=== PATIENT | female | born 1985 | race Caucasian/White ===

== ENCOUNTER 2016-11-12 10:51 | Emergency (ER) | payer SELFPAY ==
--- NOTE | ~2016-11-12 | ER ---
PATIENT'S NAME: JENN CAMERON [facility] AGE: 31 Y [address] ROOM: [place] [address] LOCATION: ED ADMIT DATE: 11/12/2016 ER/Outpatient Report DISCHARGE DATE: 11/12/2016 FAMILY PHYSICIAN: PHYSICIAN, NO ATTENDING PHYSICIAN: Eduardo Saba CHIEF COMPLAINT: Jaw pain. HISTORY OF PRESENT ILLNESS: The patient presents with left-sided jaw pain. It has been going on for the last few days. She has tried taking fxxr-ntr-dadqyha medication, but that has not been helping. She has had this pain in the past and it got better with some antibiotics and pain medicine. She denies any fevers or inability to tolerate oral intake but it is painful to chew. She denies any other acute issues at this time. She has no swelling in the floor of the mouth. PAST MEDICAL HISTORY: Documented on the record and reviewed by me. SOCIAL HISTORY: Documented on the record and reviewed by me. MEDICATIONS: Documented on the record and reviewed by me. ALLERGIES: DOCUMENTED ON THE RECORD AND REVIEWED BY ME. REVIEW OF SYSTEMS: All systems reviewed and negative except as noted in the HPI. PHYSICAL EXAMINATION: VITAL SIGNS: Blood pressure 151/99, pulse 90, respiratory rate is 18, temperature 98.2, SpO2 is 100% on room air. Pain appears to be 6/10. GENERAL: Age-appropriate female, in obvious discomfort, sitting upright in exam chair, in no respiratory distress. NEUROLOGIC: Awake and alert. GCS 15. No obvious abnormalities. HEENT: Normocephalic, atraumatic. Eyes are PERRL. The oropharynx is notable for slight dryness with marked dental caries at the left inferior molar. There is no redness, swelling, or edema of the gums or tenderness to palpation of floor of the mouth. The buccal mucosa reflection of the external angle of the mandible. No appreciated adenopathy. No evidence of Jarrett's angina. NECK: Supple. Trachea is midline. CHEST: Heart is regular. PATIENT'S NAME: JENN CAMERON [facility] AGE: 31 Y [address] ROOM: [place] [address] LOCATION: [facility] ADMIT DATE: 11/12/2016 ER/Outpatient Report DISCHARGE DATE: 11/12/2016 FAMILY PHYSICIAN: PHYSICIAN, NO ATTENDING PHYSICIAN: Eduardo Saba LUNGS: Even and unlabored respirations. SKIN: Warm, dry, and intact. LABS AND X-RAYS: None. IMPRESSION: Dental caries with dental pain. EMERGENCY DEPARTMENT COURSE: The patient was evaluated as above. Presentation consistent with dental caries. We will start her on penicillin and tramadol for pain control. Over- the-counter medications as needed for pain management. The patient was offered a dental block and declined. I recommended that she follow up with a dentist for further evaluation and return if inability to tolerate oral intake or difficulty breathing. All questions answered. The patient discharged in good condition. MD RICHARD QUINONEZ/heather /[id number] d: 11/12/16 1811 t: 11/14/16 0823, OUTPATIENT REPORT
[2017-04-16] MEDS ORDERED: PERCOCET 5-3251 EACH PO (12:57)
== END 2016-11-12 11:35 | disposition disaster alternative care site (69) ==
LOC: GMED 10:51
DX: K02.9 Dental caries, unspecified (principal)

== ENCOUNTER 2016-12-14 00:33 | Emergency (ER) | payer OTHER ==
--- NOTE | ~2016-12-14 | ER ---
PATIENT'S NAME: JENN CAMERON [facility] AGE: 31 Y [address] ROOM: [place] [address] LOCATION: [facility] ADMIT DATE: 12/14/2016 ER/Outpatient Report DISCHARGE DATE: 12/14/2016 FAMILY PHYSICIAN: PHYSICIAN, RM ATTENDING PHYSICIAN: Senia Fields HISTORY OF PRESENT ILLNESS: A 31-year-old female who presents today with chief complaint of left hand pain. It is mostly in the dorsal hand, right over the second and third metacarpals. The patient reports that she was at work and she swung her hand out and hit it on a sink at work. This happened few hours ago. She reports the pain is 8/10. She has taken ibuprofen and Tylenol without relief of pain. The patient is right-hand dominant, but denies any numbness or tingling, just pain over it. She does not want to use ice because she "does not like the way ice makes her hand feel." No other complaints at this time. Asking for pain medications. PAST MEDICAL HISTORY: Multiple dental problems and ER visits for dental pain. PAST SURGICAL HISTORY: None. SOCIAL HISTORY: She is a smoker. Does not use drugs. Drinks alcohol socially. MEDICATIONS: None. ALLERGIES: NONE. ROS: Reviewed by me negative with the exception of those discussed in the HPI. PHYSICAL EXAMINATION: VITAL SIGNS: The patient is 5 feet 8 inches, she weighs 84.8 kilos, heart rate is 94, respiratory rate 16, temperature is 98.8, blood pressure is 162/91, saturations are 97% on room air. GENERAL: She does not appear uncomfortable. She is speaking to me in full sentences. She smells like cigarette smoke. She does not look toxic at all. She does not look like she is in a lot of pain. Hand: She has some bruising and swelling right over the second and third metacarpals. She has no snuffbox tenderness. She has no wrist tenderness. She has full range of motion of the wrist. No tenderness on the lateral or medial malleolus. No pain when axial PATIENT'S NAME: JENN CAMERON [facility] AGE: 31 Y [address] ROOM: [place] [address] LOCATION: [facility] ADMIT DATE: 12/14/2016 ER/Outpatient Report DISCHARGE DATE: 12/14/2016 FAMILY PHYSICIAN: PHYSICIAN, NO ATTENDING PHYSICIAN: Senia Fields loading of the thumb. Some pain on axial loading of the second digit and third digit, but no pain of the bony part of the second and third digit. She is tender right over the second and third metacarpals really. She is able to make a fist though and she is otherwise intact sensation rodriguez. EMERGENCY ROOM COURSE: An x-ray was done. On my read, I do not see any fractures. She has no snuffbox tenderness. I looked at the scaphoid as well. I do not see any fractures. She has no snuffbox tenderness. I would not suspect a scaphoid fracture at this time. I gave her Hines. We will give her script for some pain medications and have her follow up with her primary care doctor. IMPRESSION: Left dorsal hand injury. MD HERON CUTLER/heather /[id number] d: 12/14/16527 t: 12/14/16 1816, OUTPATIENT REPORT
[2017-04-16] MEDS ORDERED: PERCOCET 5-3251 EACH PO (12:57)
== END 2016-12-14 01:14 | disposition disaster alternative care site (69) ==
LOC: GACC 00:33
DX: S69.92XA Unspecified injury of left wrist, hand and finger(s), initial encounter (principal); W22.8XXA Striking against or struck by other objects, initial encounter; Y92.69 Other specified industrial and construction area as the place of occurrence of the external cause; Y99.0 Civilian activity done for income or pay

== ENCOUNTER 2017-01-16 07:02 | Emergency (ER) | payer SELFPAY ==
--- NOTE | ~2017-01-16 | ER ---
PATIENT'S NAME: JENN CAMERON [facility] AGE: 31 Y [address] ROOM: [place] [address] LOCATION: [facility] ADMIT DATE: 01/16/2017 ER/Outpatient Report DISCHARGE DATE: 01/16/2017 FAMILY PHYSICIAN: PHYSICIAN, NO ATTENDING PHYSICIAN: Naldo Holt Admission date and time documented in medical record. I saw the patient 0715 hours. CHIEF COMPLAINT: Left lower quadrant abdominal pain. HISTORY OF PRESENT ILLNESS: The patient is a 31-year-old female who presents with onset of the left lower quadrant abdominal pain about 0200 hours this morning. No nausea, vomiting, or diarrhea. No urinary frequency, urgency, or dysuria. No back pain. No chest pain or shortness of breath. No lightheadedness, dizziness, syncope, or near syncope. No headache, eyes, ears, nose, throat, neck, or spine pain. No recent coughs, colds, flus, fever, chills, or sweats. No fall or trauma. HOME MEDICATIONS: None. ALLERGIES: NONE. SOCIAL HISTORY: The patient smokes a pack of cigarettes a day. Occasional intake of alcohol. SIGNIFICANT PAST MEDICAL HISTORY: Tobacco abuse, fatty liver, dental problems, cholelithiasis. OPERATIONS: None. REVIEW OF SYSTEMS: All systems reviewed by me are negative with the exception of those discussed in the history of present illness. PHYSICAL EXAMINATION: VITAL SIGNS: Temperature 98.3 tympanic pulse 88, respirations 16, blood pressure 131/68, O2 saturation on room air is 99%. HEAD: Normocephalic. EYES, EARS, NOSE, THROAT: Clear. Mucous membranes moist. NECK: No nuchal rigidity. No thyromegaly or cervical adenopathy. PATIENT'S NAME: JENN CAMERON [facility] AGE: 31 Y [address] ROOM: [place] [address] LOCATION: [facility] ADMIT DATE: 01/16/2017 ER/Outpatient Report DISCHARGE DATE: 01/16/2017 FAMILY PHYSICIAN: PHYSICIAN, NO ATTENDING PHYSICIAN: aNldo Holt LUNGS: Clear. Good air flow. No rales, rhonchi, or wheezes. HEART: Regular. Pulses are palpable. ABDOMEN: Soft, flat, nondistended. Minimal if any tenderness in the left lower quadrant. Good bowel tones. No organomegaly or abnormal masses palpable. No guarding rigidity or rebound tenderness. No CVA tenderness. EXTREMITIES: Without peripheral edema, cyanosis, or deformity. NEUROVASCULAR: Intact. SKIN: Clear. LABORATORY DATA: White count was 14,900, differential of 70 segs, 20 lymphocytes, 7 monos, 1 eo, 1 baso. Hemoglobin is 13.7, hematocrit 41.2 platelet count was 197,000. Quantitative HCG was negative, less than 1.0. Abdominal x-rays show no perforation, obstruction, or acute lung infiltrate. She does have increased stool pattern. We will review x-ray with the radiologist. Did give the patient Bentyl 20 mg IM in the emergency room. Morphine 4 mg IM in the emergency room. IMPRESSION: Left lower quadrant abdominal pain, etiology uncertain, most likely intestinal spasm. It looks like she has a little bit of constipation also. PLAN: The patient dismissed home. Observation. Activity as tolerated. Clear liquid diet for 24 hours and advance diet as tolerated. Bentyl 20 mg 4 times a day, #20, one bottle of mag citrate orally today at home. Follow up with personal physician in 2 to 3 days. Discussed my findings and recommendations with the patient, she understands. MD MOSHE MALCOLM/modl /[id number] d: 01/16/17 1313 t: 01/16/17 1738, OUTPATIENT REPORT
[2017-01-16 07:43] LABS: BASOPHIL # 0.1 K/uL (0.0-0.2); BASOPHIL % 0.9 %; EOSINOPHIL # 0.1 K/uL (0.0-0.5); EOSINOPHIL % 0.6 %; HEMATOCRIT 41.2 % (33.0-46.0); HEMOGLOBIN 13.7 g/dL (11.0-15.0); IMMATURE GRANULOCYTE # 0.1 K/uL (0.0-0.3); IMMATURE GRANULOCYTE % 0.8 %; LYMPHOCYTE % 20.1 %; MCH 29.8 pg (27.0-34.0); MCHC 33.3 gm/dL (32.0-36.5); MCV 89.8 fl (83.0-98.0); MONOCYTE # 1.1 K/uL (0.0-1.0); MONOCYTE % 7.4 %; MPV 11.1 fl (9.4-12.4); NEUTROPHIL # (ANC) 10.4 K/uL (1.8-7.8); NEUTROPHIL % 70.2 %; NRBC % 0 /100WBC (0-0.00); PLATELET COUNT 197 K/uL (150-450); RBC 4.59 M/uL (3.50-5.50); RDW-CV 13.2 % (11.9-14.6); WBC 14.9 K/uL (4.0-11.0)
[2017-04-16] MEDS ORDERED: PERCOCET 5-3251 EACH PO (12:57)
== END 2017-01-16 09:23 | disposition disaster alternative care site (69) ==
LOC: GMED 07:02
PROVIDERS: Emergency Medicine
DX: R10.32 Left lower quadrant pain (principal); F17.210 Nicotine dependence, cigarettes, uncomplicated
CPT/HCPCS: J0500; J2270

== ENCOUNTER 2017-01-28 00:02 | Emergency (ER) | payer SELFPAY ==
--- NOTE | ~2017-01-28 | ER ---
PATIENT'S NAME: JENN CAMERON [facility] AGE: 31 Y [address] ROOM: [place] [address] LOCATION: [facility] ADMIT DATE: 01/28/2017 ER/Outpatient Report DISCHARGE DATE: FAMILY PHYSICIAN: PHYSICIAN, NO ATTENDING PHYSICIAN: Parth Castrejon Time of Arrival: 0010 hours. Time of Evaluation: 0010 hours. CHIEF COMPLAINT: Tooth pain. HISTORY OF PRESENT ILLNESS: The patient is a 31-year-old female, who presents to the emergency department today with a chief complaint of tooth pain. It is in her right upper region. It is 9/10 in severity. It started about 2 days prior to arrival. Denies any fevers or chills. No nausea or vomiting. No diarrhea or constipation. No chest pain. No shortness of breath. PAST MEDICAL HISTORY: Tobacco abuse, fatty liver, dental problems, cholelithiasis. PAST SURGICAL HISTORY: None. SOCIAL HISTORY: The patient smokes a pack per day. Reports occasional alcohol use. Denies any illicit drug use. ALLERGIES: NO KNOWN DRUG ALLERGIES. MEDICATIONS: None. PRIMARY CARE DOCTOR: None. REVIEW OF SYSTEMS: All systems are reviewed by myself and are negative with the exception of those discussed in the HPI and past medical history. PHYSICAL EXAMINATION: VITAL SIGNS: Weight 83.5 kg, blood pressure 133/76, pulse 80, respiratory rate 18, temperature 97.5, oxygen saturation 98% on room air. PATIENT'S NAME: JENN CAMERON [facility] AGE: 31 Y [address] ROOM: [place] [address] LOCATION: [facility] ADMIT DATE: 01/28/2017 ER/Outpatient Report DISCHARGE DATE: FAMILY PHYSICIAN: PHYSICIAN, NO ATTENDING PHYSICIAN: Parth Castrejon GENERAL: The patient is a 31-year-old female, who appears stated age, in mild acute distress. HEENT: Normocephalic, atraumatic. Oropharynx: The patient has multiple dental caries. Her right upper molar is decayed with no obvious abscess noted. There is no Jarrett's angina. Oropharynx is otherwise clear. NECK: Supple. There is no nuchal rigidity. No tenderness to palpation. CARDIOVASCULAR: Regular rate and rhythm. No murmurs, rubs, or gallops. LUNGS: Clear to auscultation bilaterally. No wheezes, rales, or rhonchi. MUSCULOSKELETAL: The patient has good muscle tone. Moves all 4 extremities. SKIN: Warm and dry. LABORATORY DATA AND X-RAYS: None. IMPRESSION: 1. Dentalgia. 2. Multiple dental caries, in various stages of decay. 3. Initial visit. EMERGENCY DEPARTMENT COURSE: The patient was brought back to the examination room. Seen and evaluated by myself. The patient was given 60 mg of Toradol IM. This resulted in the improvement of the patient's pain. I have discussed that I will place the patient on penicillin. I have written a prescription for this. I have also written a prescription for Naprosyn for home. I have asked she follows up with a dentist in 2 days for re-evaluation. I have discussed return to care instructions including worsening symptoms or any other concerns to return to the emergency department as soon as possible. The patient is agreeable without further questions at this time. DISPOSITION: The patient discharged home in good condition. DO ZORAIDA FLANAGAN/modl /[id number] d: 01/28/1757 t: 01/28/171919, OUTPATIENT REPORT
[2017-04-16] MEDS ORDERED: PERCOCET 5-3251 EACH PO (12:57)
== END 2017-01-28 00:32 | disposition disaster alternative care site (69) ==
LOC: GMED 00:02
DX: K02.9 Dental caries, unspecified (principal); F17.210 Nicotine dependence, cigarettes, uncomplicated
CPT/HCPCS: J1885

== ENCOUNTER → 2017-04-16 | Day surgery (SDC) | payer SELFPAY ==
[~2017-04-16] VITALS: Ht 172.7 cm; Wt 91.1 kg
[~2017-04-16] MED LIST: PERCOCET 5-3251 EACH PO
--- NOTE | ~2017-04-16 | ER ---
PATIENT'S NAME: JENN CAMERON [facility] AGE: 31 Y [address] ROOM: [place] [address] [place] [facility] ADMIT DATE: 04/16/2017 ER/Outpatient Report DISCHARGE DATE: FAMILY PHYSICIAN: PHYSICIAN, NO ATTENDING PHYSICIAN: Heriberto Connelly CHIEF COMPLAINT: Severe lower abdominal pain. HISTORY OF PRESENT ILLNESS: Ms. Cameron states that last Saturday, she was told she miscarried at [facility]. She was seen at [facility] on Saturday by Dr. Reynolds, was told to "wait it out," and is scheduled to be seen this Saturday for same. However, she had significant pain that started yesterday, and throughout the night, it became worse and worse. It is located low in the pelvis. It is associated with constant vaginal bleeding since the onset last Saturday. She denies any others symptoms at this time. PAST MEDICAL HISTORY: Documented on the record and reviewed by me. SOCIAL HISTORY: Documented on the record and reviewed by me. MEDICATIONS: Documented on the record and reviewed by me. ALLERGIES: DOCUMENTED ON THE RECORD AND REVIEWED BY ME. REVIEW OF SYSTEMS: All systems were reviewed and negative except as noted in the HPI. PHYSICAL EXAMINATION: VITAL SIGNS: Blood pressure 135/98, pulse 94, respiratory rate is 20, temperature 97.5, and SpO2 is 96% on room air. Pain is rated 8/10. GENERAL: An age-appropriate female, recumbent on the exam table, in obvious pain, in no apparent distress. HEENT: Normocephalic, atraumatic. Eyes are PERRL. Oropharynx is clear. NECK: Supple. Trachea is midline. NEUROLOGIC: Awake and alert. GCS 15. No focal deficits. No asymmetry. CHEST: Even and nonlabored respirations. LUNGS: Clear to auscultation bilaterally. HEART: Regular rate and rhythm. No murmurs. ABDOMEN: Soft, nontender, and nondistended. No rebound, guarding, or masses PATIENT'S NAME: JENN CAMERON [facility] AGE: 31 Y [address] ROOM: [place] [address] LOCATION: [facility] [place] ADMIT DATE: 04/16/2017 ER/Outpatient Report DISCHARGE DATE: FAMILY PHYSICIAN: PHYSICIAN, NO ATTENDING PHYSICIAN: Heriberto Connelly except for the suprapubic region which is diffusely tender. BACK: Normal to inspection and palpation. No CVA or paraspinal tenderness. GENITOURINARY: Normal external female genitalia. Internal exam reveals blood in the vaginal vault. The os appears to be closed. There is some scant clot there and active bleeding. EXTREMITIES: Warm and well perfused. No obvious abnormalities or deformities. SKIN: Clean, dry, and intact. LABORATORY AND X-RAY DATA: Ultrasound reveals no clear pole, but definite abnormality within the uterus. Blood type is O positive, antibody negative. CMS with no significant electrolyte abnormalities other than a potassium at 3.5. Renal function and LFTs unremarkable. HCG is 7535, most recently 3080 on 04/10 and 1500 a week ago on initial evaluation. White count is 13.1 with 9.7 neutrophils, hemoglobin is 13.5, and platelets of 231. INR is less than 1. IMPRESSION: Likely ectopic versus abnormal . EMERGENCY DEPARTMENT COURSE: The patient was seen and evaluated as above. Based on the fact that her hCG is not changing appropriately for the presentation and the abnormal ultrasound, there was concern for a very abnormal versus life- threatening with severe abdominal pain and vaginal bleeding. I discussed the case with Dr. Connelly, SHEATHER. He evaluated the patient and will take her to the operating room for evaluation for ectopic and possible D and C pending completion of his evaluation. The patient was given fentanyl for symptom relief, which was very helpful for her. She was also given some Zofran for nausea. She will be taken to the preoperative area from the ER and will be taken to the operating room initially. She will be admitted or discharged pending completion of Dr. Connelly's evaluation. MD RICHARD QUINONEZ/heather /[id number] d: 04/17/17 1441 t: 04/30/17 0950, OUTPATIENT REPORT
--- NOTE | ~2017-04-16 | HP ---
PATIENT'S NAME: GUERDA CAMERON [facility] AGE: 31 Y [address] ROOM: [place] [address] LOCATION: [facility] [place] ADMIT DATE: 04/16/2017 History & Physical DISCHARGE DATE: FAMILY PHYSICIAN: PHYSICIAN, NO ATTENDING PHYSICIAN: Heriberto Connelly DATE OF SERVICE: CHIEF COMPLAINT: Pelvic pain and vaginal bleeding while . HISTORY OF PRESENT ILLNESS: Guerda Cameron is a 31-year-old single white female, primigravida, who presents to the emergency room with complaints of persistent vaginal bleeding. The patient states her LMP is 02/13/2017, which makes her 8 weeks and 6 days gestational age. She has a known , blood type is O positive. She would present to [facility] with complaints of possible miscarriage. Ultrasound at that time showed no viable intrauterine . She would follow up at [facility]. She saw Dr. Essence Reynolds on 04/10/2017. At that time, it was felt that she had an early intrauterine , but could not identify a pole and there was a small gestational sac. No free fluid in the pelvis. Later that evening, her hCG would return 3080. She would now present to the emergency room at [facility] with complaints of persistent vaginal bleeding for the past 1-2 weeks. Again, she is 8 weeks 6 days gestational age. Ultrasound today showed no viable intrauterine , no clear gestational sac, no pole, no identified extrauterine , no free fluid in the pelvis; however, her serum hCG has risen to approximately 7500. She is complaining of some left lower quadrant pain. With the rising serum hCG and no identifiable intrauterine , it is suspicious for an ectopic . As there has been no interval change during the 3 ultrasounds to suggest ongoing viable intrauterine , we are recommending she undergo a laparoscopy to rule out an ectopic and a uterine dilation and curettage should that be negative. The patient understood the indications, procedures, risks, and alternatives. PAST MEDICAL HISTORY: The patient is primigravida with LMP 02/13/2017. She has never used contraception throughout her entire life and this is the first . She states that she smokes half pack per day and she states she has a history of an anxiety disorder, but her medications were discontinued when she discovered she was . Does not remember what the medication was. No previous operations. CURRENT MEDICATIONS: PATIENT'S NAME: GUERDA CAMERON [facility] AGE: 31 Y [address] ROOM: [place] [address] LOCATION: [facility] [place] ADMIT DATE: 04/16/2017 History & Physical DISCHARGE DATE: FAMILY PHYSICIAN: PHYSICIAN, NO ATTENDING PHYSICIAN: Heriberto Connelly No current medications. ALLERGIES: NO ALLERGIES. FAMILY HISTORY: Significant for diabetes and hypertension. REVIEW OF SYSTEMS: Significant for the persistent vaginal bleeding, pain in the left lower quadrant, otherwise negative. PHYSICAL EXAMINATION: GENERAL: A well-developed, well-nourished white female, appears stated age. HEENT: Grossly normal. LUNGS: Clear to auscultation. HEART: Regular rate and rhythm without murmur. ABDOMEN: Soft, minimally tender in the left lower quadrant, but no guarding or rebound in any quadrants. Bowel sounds were present. PELVIC: Deferred. EXTREMITIES: Grossly normal. NEUROLOGIC: Noted deep tendon reflexes to be 2+ and equal. Pupils are equal, round, reactive to light and accommodation. Extraocular motions are intact. IMPRESSION: A 31-year-old female with a nonviable , suspected ectopic . Recommend she undergo a diagnostic laparoscopy to rule out ectopic . Possible D and C should that be negative. PLAN: Proceed to diagnostic laparoscopy, possible D and C. The patient understands the indications, procedures, risks, and alternatives. Also understands the risks to include bleeding that may require transfusions, infections, may require IV antibiotics, prolonged hospitalization, possible damage to internal organs, may require additional surgical correction, and the risks of anesthesia. All questions were answered to the patient's satisfaction and informed consent was obtained. MD CANDELARIA DAY/heather PATIENT'S NAME: GUERDA CAMERON [facility] AGE: 31 Y [address] ROOM: [place] [address] LOCATION: [facility] [place] ADMIT DATE: 04/16/2017 History & Physical DISCHARGE DATE: FAMILY PHYSICIAN: PHYSICIAN, NO ATTENDING PHYSICIAN: Heriberto Connelly /[id number] D: [id number] T: [id number] HISTORY & PHYSICAL
--- NOTE | ~2017-04-16 | OR ---
PATIENT'S NAME: GUERDA OGDEN [facility] AGE: 31 Y [address] 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 DATE OF PROCEDURE: 04/16/2017 PREOPERATIVE DIAGNOSIS: Suspected ectopic . POSTOPERATIVE DIAGNOSIS: Right ampullary tubal ectopic . ANESTHESIA: General endotracheal anesthesia. ESTIMATED BLOOD LOSS: 5 mL. CLINICAL INDICATION: Guerda Ogden is a 31-year-old single, white female, primigravida, her LMP 02/13/2017 placed in her 8 weeks and 6 days gestational age. She presented to the emergency room with bleeding. This is her 3rd evaluation for bleeding during this . All three ultrasound failed to show a pole. Although, one ultrasound suspected a gestational sac. She has minimal free fluid in the pelvis. Pain on the left side of her pelvis. HCG values have been rising, last week they were 3000 and currently 7500. Her blood type is O positive. We are suspecting a tubal ectopic . She understood the indications, procedures, risks, and alternatives. FINDINGS: Right-sided ampullary tubal ectopic , some free blood in the pelvis suggesting either tubal miscarriage or an early rupturing ectopic . Both ovaries appeared normal as did the left fallopian tube. The uterus appeared normal as well. TECHNIQUE OF PROCEDURE: The patient taken operating room, given general endotracheal anesthesia with good results, placed in the lithotomy position, prepped and draped in usual fashion. A Hulka endocervical tenaculum was placed about the cervix. A lidocaine was placed about the incision sites. A transverse infraumbilical skin incision was made with a scalpel. Veress insufflating needle was inserted through the incision. Approximately 2 L of carbon dioxide were inserted abdomen. Veress needle was then replaced with blunt trocar and sleeve. Trocar was replaced with the laparoscopic, a 2nd suprapubic puncture site was made. The above-mentioned findings were identified. A 2nd suprapubic port was created by using a scalpel, placing blunt trocar and sleeve. Trocar was removed. A 3rd right lower quadrant port was placed using a scalpel with good skin. Blunt trocar and sleeve inserted into the incision. Trocars were PATIENT'S NAME: GUERDA OGDEN [facility] AGE: 31 Y [address] ROOM: [place], [place] [address] LOCATION: [facility] ADMIT DATE: 04/16/2017 OR/Procedure Report DISCHARGE DATE: FAMILY PHYSICIAN: PHYSICIAN, NO ATTENDING PHYSICIAN: Heriberto Connelly replaced with the LigaSure. LigaSure was used to remove the ectopic . The mesosalpinx was secured and using the LigaSure. Once the specimen was freed, the specimen was brought through an EndoCatch bag and was retrieved from the abdomen. Good hemostasis was obtained. The carbon dioxide was allowed to escape the abdomen. The laparoscopic and vaginal instruments were retrieved. Stab wounds were closed with deep single interrupted stitches followed by [id number] interrupted stitches of 4-0 Vicryl suture. Sponge, needle, and instrument counts were correct. The patient tolerated procedure well, was taken to the recovery room in good condition. MD CANDELARIA DAY/heather /[id number] d: 04/16/17 1520 t: 04/29/17 1031, OPERATIVE SUMMARY
[2017-04-16 07:01] LABS: BASOPHIL # 0.1 K/uL (0.0-0.2); BASOPHIL % 0.5 %; EOSINOPHIL # 0.1 K/uL (0.0-0.5); EOSINOPHIL % 1.1 %; HEMATOCRIT 39.8 % (33.0-46.0); HEMOGLOBIN 13.5 g/dL (11.0-15.0); IMMATURE GRANULOCYTE # 0.1 K/uL (0.0-0.3); IMMATURE GRANULOCYTE % 0.5 %; LYMPHOCYTE # 2.4 K/uL (0.8-4.0); LYMPHOCYTE % 17.9 %; MCH 31.3 pg (27.0-34.0); MCHC 33.9 gm/dL (32.0-36.5); MCV 92.1 fl (83.0-98.0); MONOCYTE # 0.8 K/uL (0.0-1.0); MONOCYTE % 5.9 %; MPV 10.9 fl (9.4-12.4); NEUTROPHIL # (ANC) 9.7 K/uL (1.8-7.8); NEUTROPHIL % 74.1 %; NRBC % 0 /100WBC (0-0.00); PLATELET COUNT 231 K/uL (150-450); RBC 4.32 M/uL (3.50-5.50); RDW-CV 13.3 % (11.9-14.6); WBC 13.1 K/uL (4.0-11.0)
[2017-04-16 07:11] LABS: INR - (THERAPEUTIC) 0.91 (0.92-1.07); PROTIME 9.5 SECONDS (9.8-11.4); PTT 30 SECONDS (25-32)
[2017-04-16 07:20] LABS: ALBUMIN 3.4 gm/dL (3.5-5.0); ALK PHOS 69 IU/L (33-138); ALT 18 IU/L (12-78); ANION GAP 10.5 (10.0-19.0); AST 11 IU/L (10-40); BLOOD UREA NITROGEN 13 mg/dL (6-24); CALCIUM 8.7 mg/dL (8.5-10.5); CHLORIDE 108 mMol/L (96-110); CO2 25 mMol/L (22-32); CREATININE 0.8 mg/dL (0.5-1.1); POTASSIUM 3.5 mMol/L (3.7-5.1); SODIUM 140 mMol/L (135-145); TOTAL BILIRUBIN 0.3 mg/dL (0.0-1.5); TOTAL PROTEIN 7.3 g/dL (6.0-8.4)
== END ==
LOC: GMED 06:25 → GSDC 10:04
PROVIDERS: Emergency Medicine
PROC: 10T24ZZ Resection of Products of Conception, Ectopic, Percutaneous Endoscopic Approach (ICD-10-PCS; principal; 2017-04-16)
PROC: 0UB54ZZ Excision of Right Fallopian Tube, Percutaneous Endoscopic Approach (ICD-10-PCS; 2017-04-16)
DX: O00.10 Tubal pregnancy without intrauterine pregnancy (principal); F17.210 Nicotine dependence, cigarettes, uncomplicated; F41.9 Anxiety disorder, unspecified; Z3A.08 8 weeks gestation of pregnancy
CPT/HCPCS: J1885; J2405; J2550; J3010; J7030

== ENCOUNTER 2017-04-20 08:21 | Emergency (ER) | payer SELFPAY ==
--- NOTE | ~2017-04-20 | ER ---
PATIENT'S NAME: JENN CAMERON [facility] AGE: 31 Y [address] ROOM: [place], [place] [address] LOCATION: [facility] ADMIT DATE: 04/20/2017 ER/Outpatient Report DISCHARGE DATE: 04/20/2017 FAMILY PHYSICIAN: PHYSICIAN, NO ATTENDING PHYSICIAN: Nancy Brandt Time of Arrival: 0821 hours. Time of Evaluation: 0830 hours. IDENTIFICATION: A 31-year-old female. CHIEF COMPLAINT: Abdominal cramps. HISTORY OF PRESENT ILLNESS: The patient is a 31-year-old, G1, P0, female who had a right ampullary tubal ectopic and underwent diagnostic laparoscopy with excision of right tubal per Dr. Connelly on April 16. She had been taking Percocet, but has run out of the Percocet and since 4 a.m. has had an increase in pain, constant lower abdominal pain. No vaginal discharge. The bleeding has been minimal, no more than 2 pads per day. Last bowel movement was 2 hours ago and was normal. She has had some nausea and no vomiting. No other problems or concerns. She took both Tylenol and ibuprofen at 4:30 a.m. with no relief. ALLERGIES: NO KNOWN DRUG ALLERGIES. CURRENT MEDICATIONS: No current medications. PAST MEDICAL HISTORY: No medical problems. It looks like she has had frequent ER visits for tooth pain, abdominal pain, jaw pain, etc. over the last several months. The patient has a history of tobacco abuse, fatty liver, dental problems, and cholelithiasis. PAST SURGICAL HISTORY: Just this recent laparoscopy. SOCIAL HISTORY: The patient lives here in [place]. Tobacco use, half pack per day. Alcohol use, denies. Drug use, denies. REVIEW OF SYSTEMS: PATIENT'S NAME: JENN CAMERON [facility] AGE: 31 Y [address] ROOM: [place], [place] [address] LOCATION: [facility] ADMIT DATE: 04/20/2017 ER/Outpatient Report DISCHARGE DATE: 04/20/2017 FAMILY PHYSICIAN: PHYSICIAN, NO ATTENDING PHYSICIAN: Nancy Brandt All systems reviewed and negative other than what is noted in the HPI. The patient smells slightly of still alcohol. She did admit to drinking last night. PHYSICAL EXAMINATION: VITAL SIGNS: Height 5 feet 8 inches. Weight 88.8 kg. Blood pressure 158/93, pulse 88, respirations 20, temperature 97.2, and saturations 98% on room air. GENERAL: A 31-year-old female in moderate distress. HEENT: Unremarkable. LUNGS: Clear to auscultation. HEART: Regular rate and rhythm. ABDOMEN: Soft, nondistended, minimally tender to deep palpation. No rebound or guarding. Incisions are clean, dry, and intact. No drainage. EXTREMITIES: No edema. NEURO: No focal deficits. ER COURSE: A saline lock was initiated. The patient was given Zofran for pain. LABORATORY DATA: Hemoglobin 14.4, hematocrit 43.5, platelets 268, white count 14.2. Urine drug screen positive for THC. UA negative. Alcohol level was less than 0.010. Chemistry panel was unremarkable. Lipase 82, hCG 184. The patient was given Zofran 4 mg with improvement of her symptoms. Her pain relieved from a 10 to a 3, and she was feeling much better. IMPRESSION: Abdominal pain postop. PLAN: Percocet 5/325 one p.o. q.6 hours p.r.n. severe pain, dispensed 4 with 0 refill; Zofran 4 mg 1 p.o. q.6 hours p.r.n. nausea, dispensed 4; Tylenol or Advil for titi-tf-cagpsbce pain. Follow up with Dr. Connelly in 2 days. Follow up sooner if any problems or concerns. The patient understands and agrees and all questions have been answered. NANCY BRANDT MD CAR/modl PATIENT'S NAME: JENN CAMERON [facility] AGE: 31 Y [address] ROOM: [place], [place] [address] LOCATION: ED ADMIT DATE: 04/20/2017 ER/Outpatient Report DISCHARGE DATE: 04/20/2017 FAMILY PHYSICIAN: PHYSICIAN, NO ATTENDING PHYSICIAN: Nancy Brandt /[id number] d: [id number] t: 04/22/172043, OUTPATIENT REPORT
[2017-04-20 08:54] LABS: BASOPHIL # 0.1 K/uL (0.0-0.2); BASOPHIL % 0.6 %; EOSINOPHIL # 0.1 K/uL (0.0-0.5); EOSINOPHIL % 0.8 %; HEMATOCRIT 43.5 % (33.0-46.0); HEMOGLOBIN 14.4 g/dL (11.0-15.0); IMMATURE GRANULOCYTE # 0.1 K/uL (0.0-0.3); IMMATURE GRANULOCYTE % 0.5 %; LYMPHOCYTE # 2.3 K/uL (0.8-4.0); LYMPHOCYTE % 16.5 %; MCH 30.7 pg (27.0-34.0); MCHC 33.1 gm/dL (32.0-36.5); MCV 92.8 fl (83.0-98.0); MONOCYTE % 7.2 %; MPV 10.2 fl (9.4-12.4); NEUTROPHIL # (ANC) 10.6 K/uL (1.8-7.8); NEUTROPHIL % 74.4 %; NRBC % 0 /100WBC (0-0.00); PLATELET COUNT 268 K/uL (150-450); RBC 4.69 M/uL (3.50-5.50); RDW-CV 13.6 % (11.9-14.6); WBC 14.2 K/uL (4.0-11.0)
[2017-04-20 09:15] LABS: ALBUMIN 3.9 gm/dL (3.5-5.0); ANION GAP 13.1 (10.0-19.0); CALCIUM 9.3 mg/dL (8.5-10.5); CREATININE 0.9 mg/dL (0.5-1.1); POTASSIUM 4.1 mMol/L (3.7-5.1); TOTAL BILIRUBIN 0.3 mg/dL (0.0-1.5); TOTAL PROTEIN 8.4 g/dL (6.0-8.4)
[2017-04-20 09:17] LABS: BILIRUBIN URINE NEGATIVE (NEGATIVE); BLOOD URINE 150 /UL (NEGATIVE); COLOR URINE YELLOW (YELLOW); GLUCOSE URINE NEGATIVE (NEGATIVE); KETONE URINE NEGATIVE (NEGATIVE); LEUKOCYTES URINE 25 /UL (NEGATIVE); NITRITE URINE NEGATIVE (NEGATIVE); PROTEIN URINE 30 mg/dL (NEGATIVE); TURBIDITY URINE CLEAR (CLEAR); UROBILINOGEN URINE NORMAL (NORMAL)
[2017-04-20 09:36] LABS: BACTERIA URINE NEGATIVE (NEGATIVE)
[2017-04-20 09:43] LABS: BARBITURATE NEGATIVE (NEGATIVE); COCAINE NEGATIVE (NEGATIVE); OPIATES NEGATIVE (NEGATIVE)
[2017-04-20 09:46] LABS: AMPHETAMINE NEGATIVE (NEGATIVE)
== END 2017-04-20 10:34 | disposition disaster alternative care site (69) ==
LOC: GMED 08:21
PROVIDERS: Family Medicine
DX: G89.18 Other acute postprocedural pain (principal); R10.9 Unspecified abdominal pain; F17.210 Nicotine dependence, cigarettes, uncomplicated; Z87.19 Personal history of other diseases of the digestive system
CPT/HCPCS: G0480; J2001; J2405; J3010

== ENCOUNTER 2017-04-24 06:32 | Emergency (ER) | payer SELFPAY ==
--- NOTE | ~2017-04-24 | ER ---
PATIENT'S NAME: JENN CAMERON [facility] AGE: 31 Y [address] ROOM: [place] [address] LOCATION: [facility] ADMIT DATE: 04/24/2017 ER/Outpatient Report DISCHARGE DATE: 04/24/2017 FAMILY PHYSICIAN: PHYSICIAN, NO ATTENDING PHYSICIAN: Parth Castrejon TIME OF ARRIVAL: 0632 hours. TIME OF EVALUATION: 0646 hours. CHIEF COMPLAINT: Abdominal pain. HISTORY OF PRESENT ILLNESS: The patient is a 31-year-old female who presents to the emergency department today with a chief complaint of abdominal pain. She reports it started about 2 hours prior to arrival. She reports she had a surgery for an ectopic last week with Dr. Connelly. She denies any fevers or chills. Does report some nausea and vomiting x2. Denies any diarrhea. No constipation. Denies any urinary frequency, urgency, or painful urination. She does report she had some crampy abdominal pain on Saturday that has been gone. This is a different type of pain. It is a sharp pain right around her belly button. She reports she has had some light vaginal bleeding which has significantly improved over the past week. Denies any vaginal discharge. PAST MEDICAL HISTORY: Tobacco abuse, fatty liver, dental problems, and cholelithiasis. PAST SURGICAL HISTORY: Ectopic . SOCIAL HISTORY: The patient smokes half pack per day for 20 years. Denies any alcohol or illicit drug use. ALLERGIES: NO KNOWN DRUG ALLERGIES. MEDICATIONS: None. PRIMARY CARE DOCTOR: Dr. Connelly. PATIENT'S NAME: JENN CAMERON [facility] AGE: 31 Y [address] ROOM: [place] [address] LOCATION: [facility] ADMIT DATE: 04/24/2017 ER/Outpatient Report DISCHARGE DATE: 04/24/2017 FAMILY PHYSICIAN: PHYSICIAN, NO ATTENDING PHYSICIAN: Parth Castrejon REVIEW OF SYSTEMS: All systems are reviewed by myself and are negative with the exception of those discussed in the HPI and Past Medical History. PHYSICAL EXAMINATION: VITAL SIGNS: Weight 98.7 kg. Blood pressure 127/77, pulse 99, respiratory rate 20, temperature 96.3, and oxygen saturation 100% on room air. GENERAL: The patient is a 31-year-old female who appears stated age, in mild- to-moderate acute distress. HEENT: Head is normocephalic and atraumatic. Pupils are equal, round, and reactive to light. Mucous membranes moist. NECK: Supple. There is no nuchal rigidity. CARDIOVASCULAR: Regular rate and rhythm. No murmurs, rubs, or gallops. LUNGS: Clear to auscultation bilaterally. No wheezes, rales, or rhonchi. ABDOMEN: Soft. Mild diffuse tenderness to palpation. There is no rebound, rigidity, or guarding. Positive bowel sounds. MUSCULOSKELETAL: The patient moves all 4 extremities. SKIN: Warm and dry. There are no rashes or lesions noted. The patient's incision sites are clean, dry, and intact. LABORATORY AND X-RAY DATA: Lactate is 2.1. CBC: White blood cell count 17.3. Otherwise, normal. CMP is unremarkable. LFTs are normal. Lipase is normal. Serum hCG is 24. Urinalysis shows 250 blood, 15 protein, rare wbc's and bacteria, and 5 to 10 epithelials. Procalcitonin is less than 0.05. CT scan of the abdomen and pelvis was obtained. I have discussed results with the radiologist. It shows no acute process. There is no uterine mass. Ovaries appear normal. There is no evidence of abscess. There is no free fluid. She does have nonobstructing kidney calculi. Lung bases are clear. IMPRESSION: 1. Acute nonsurgical periumbilical abdominal pain. 2. Nausea and vomiting. 3. Initial visit. EMERGENCY DEPARTMENT COURSE: The patient was brought back to the examination room. Seen and evaluated by myself. IV was established. Laboratory analysis and imaging were obtained as described above. The patient was given 1 L of normal saline IV. She was given 4 mg of Zofran IV, 30 mg of Toradol IV, as well as 5 mg of morphine IV. This resulted in significant improvement in the patient's symptoms. Abdominal exam is repeated. She continues to have a nonsurgical abdominal exam at this time. I have discussed the results with the patient. Recommended close followup with Dr. Connelly in 1 to 2 days for re-evaluation. I have discussed PATIENT'S NAME: JENN CAMERON [facility] AGE: 31 Y [address] ROOM: [place] [address] LOCATION: [facility] ADMIT DATE: 04/24/2017 ER/Outpatient Report DISCHARGE DATE: 04/24/2017 FAMILY PHYSICIAN: PHYSICIAN, NO ATTENDING PHYSICIAN: Parth Castrejon return to care instructions including worsening symptoms or any other concerns, to return to the emergency department as soon as possible. I have written a prescription for Zofran for home. The patient is agreeable. She is without further questions at this time. DISPOSITION,: The patient is discharged to home in good condition. DO DERRICK FLANAGANR/modl /[id number] d: 04/24/17 1107 t: 04/24/17 1624, OUTPATIENT REPORT
[2017-04-24 07:30] LABS: BASOPHIL # 0.1 K/uL (0.0-0.2); BASOPHIL % 0.7 %; EOSINOPHIL # 0.2 K/uL (0.0-0.5); EOSINOPHIL % 0.9 %; HEMATOCRIT 44.5 % (33.0-46.0); HEMOGLOBIN 14.6 g/dL (11.0-15.0); IMMATURE GRANULOCYTE # 0.1 K/uL (0.0-0.3); IMMATURE GRANULOCYTE % 0.5 %; LYMPHOCYTE # 2.8 K/uL (0.8-4.0); LYMPHOCYTE % 16.4 %; MCH 30.2 pg (27.0-34.0); MCHC 32.8 gm/dL (32.0-36.5); MCV 92.1 fl (83.0-98.0); MONOCYTE # 0.9 K/uL (0.0-1.0); MONOCYTE % 5.1 %; MPV 10.4 fl (9.4-12.4); NEUTROPHIL # (ANC) 13.2 K/uL (1.8-7.8); NEUTROPHIL % 76.4 %; NRBC % 0 /100WBC (0-0.00); PLATELET COUNT 261 K/uL (150-450); RBC 4.83 M/uL (3.50-5.50); RDW-CV 13.5 % (11.9-14.6); WBC 17.3 K/uL (4.0-11.0)
[2017-04-24 07:49] LABS: ALBUMIN 3.7 gm/dL (3.5-5.0); ANION GAP 13.7 (10.0-19.0); CREATININE 0.9 mg/dL (0.5-1.1); POTASSIUM 3.7 mMol/L (3.7-5.1); TOTAL BILIRUBIN 0.3 mg/dL (0.0-1.5); TOTAL PROTEIN 7.7 g/dL (6.0-8.4)
[2017-04-24 08:39] LABS: BILIRUBIN URINE NEGATIVE (NEGATIVE); BLOOD URINE 250 /UL (NEGATIVE); COLOR URINE YELLOW (YELLOW); GLUCOSE URINE NEGATIVE (NEGATIVE); KETONE URINE NEGATIVE (NEGATIVE); LEUKOCYTES URINE NEGATIVE /UL (NEGATIVE); NITRITE URINE NEGATIVE (NEGATIVE); PROTEIN URINE 15 mg/dL (NEGATIVE); TURBIDITY URINE 1+ (CLEAR); UROBILINOGEN URINE NORMAL (NORMAL)
[2017-04-24 08:47] LABS: BACTERIA URINE RARE (NEGATIVE); MUCUS URINE 1+ (NEGATIVE); RBC URINE 0-2 #/HPF (NEGATIVE); WBC URINE RARE #/HPF (NEGATIVE)
== END 2017-04-24 09:45 | disposition disaster alternative care site (69) ==
LOC: GMED 06:32
PROVIDERS: Emergency Medicine
DX: R10.33 Periumbilical pain (principal); R11.2 Nausea with vomiting, unspecified; F17.210 Nicotine dependence, cigarettes, uncomplicated
CPT/HCPCS: J1885; J2270; J2405; J7030; Q9967

== ENCOUNTER 2017-05-26 02:59 | Emergency (ER) | payer SELFPAY ==
--- NOTE | ~2017-05-26 | ER ---
PATIENT'S NAME: JENN CAMERON [facility] AGE: 32 Y [address] ROOM: [place] [address] LOCATION: [facility] ADMIT DATE: 05/26/2017 ER/Outpatient Report DISCHARGE DATE: FAMILY PHYSICIAN: PHYSICIAN, NO ATTENDING PHYSICIAN: Parth Castrejon Time of Arrival: 0259 hours. Time of Evaluation: 0315 hours. CHIEF COMPLAINT: Tooth pain. HISTORY OF PRESENT ILLNESS: The patient is a 32-year-old female who presents to the emergency department today with chief complaint of tooth pain. She reports this has been going on for about a week. She reports 7/10 pain in the right lower and right upper. She reports she has an appointment to have her teeth pulled by a dentist, Dr. Mayo, on Saturday. She has been on amoxicillin for 3 total doses. They did start her on ibuprofen as well. She was unable to sleep tonight, so she came in. Does report some subjective fevers and chills. Denies any diarrhea or constipation. No nausea or vomiting. No swelling. PAST MEDICAL HISTORY: Fatty liver, dental problems, and cholelithiasis. PAST SURGICAL HISTORY: Ectopic . SOCIAL HISTORY: The patient smokes half pack per day for 20 years. Denies any alcohol or illicit drug use. ALLERGIES: NO KNOWN DRUG ALLERGIES. MEDICATIONS: Please see list. PRIMARY CARE DOCTOR: None. REVIEW OF SYSTEMS: All systems are reviewed by myself and are negative with the exception of those discussed in HPI and past medical history. PATIENT'S NAME: JENN CAMERON [facility] AGE: 32 Y [address] ROOM: [place] [address] LOCATION: [facility] ADMIT DATE: 05/26/2017 ER/Outpatient Report DISCHARGE DATE: FAMILY PHYSICIAN: PHYSICIAN, NO ATTENDING PHYSICIAN: Parth Castrejon PHYSICAL EXAMINATION: VITAL SIGNS: Weight 96.2 kg, blood pressure 151/92, pulse 64, respiratory rate 18, temperature 98.8, oxygen saturation 99% on room air. GENERAL: The patient is a 32-year-old female, appears stated age, in no acute distress at this time. HEENT: Head: Normocephalic, atraumatic. Pupils are equal, round, and reactive to light. Oropharynx is clear. There is no Jarrett angina. There is no posterior pharyngeal swelling. The patient does have multiple dental caries in various stages of decay. I see no obvious periapical abscess noted. NECK: Supple. There is no nuchal rigidity. No masses palpated. CARDIOVASCULAR: Regular rate and rhythm. No murmurs, rubs, or gallops. LUNGS: Clear to auscultation bilaterally. No wheezes, rales, or rhonchi. ABDOMEN: Soft, nontender, and nondistended. No rebound, rigidity, or guarding. MUSCULOSKELETAL: The patient moves all 4 extremities. SKIN: Warm and dry. There are no rashes or lesions noted. LABORATORY DATA AND X-RAYS: None. IMPRESSION: 1. Dentalgia. 2. Multiple dental caries in various stages of decay. 3. Initial visit. EMERGENCY DEPARTMENT COURSE: The patient was brought back to the examination room. Seen and evaluated by myself. The patient was given 60 mg of Toradol IM as well as 2 tabs of [place] orally. I have written a prescription for Mobic and recommended that she stop taking ibuprofen. I have recommended to continue the amoxicillin. I have discussed following up with a dentist in 2-3 days for re-evaluation. I have discussed [id number] instructions including worsening symptoms or any other concerns to return to the emergency department as soon as possible. The patient is agreeable without further questions at this time. DISPOSITION: The patient is discharged home in good condition. DO ZORAIDA FLANAGAN/heather PATIENT'S NAME: JENN CAMERON [facility] AGE: 32 Y [address] ROOM: [place] [address] LOCATION: ED ADMIT DATE: 05/26/2017 ER/Outpatient Report DISCHARGE DATE: FAMILY PHYSICIAN: PHYSICIAN, NO ATTENDING PHYSICIAN: Parth Castrejon /[id number] d: 05/26/17 0400 t: 05/28/17 1815, OUTPATIENT REPORT
== END 2017-05-26 03:41 | disposition disaster alternative care site (69) ==
LOC: GMED 02:59
DX: K02.9 Dental caries, unspecified (principal); F17.210 Nicotine dependence, cigarettes, uncomplicated; Z79.899 Other long term (current) drug therapy
CPT/HCPCS: J1885